=== PATIENT | female | born 1975 | race Caucasian/White ===

== ENCOUNTER 2023-08-18 10:38 | Emergency (ER) | payer BC, SELFPAY ==
[2023-08-18] VITALS (22 sets, daily range): BP systolic 131–149; BP diastolic 87–106; PULSE 93–123; RESP 10–29; TEMP 36.9; O2SAT 93–100; BMI 25.2
--- NOTE | 2023-08-18 10:52 | XR_ITS ---
The [address] [address] Patient Name: JERRI BONILLA MRN: [id number] date: 1975 Sex: F Assigned Patient Location: ER Current Patient Location: ER Accession/Order Number: [id number] Exam Date: 08/18/2023 11:00 Report Date: 08/18/2023 11:18 At the request of: CYNTHIA NICHOLAS Procedure: XR chest 1V EXAMINATION: XR chest 1V HISTORY: Palpitations COMPARISON: No relevant comparison available. FINDINGS: LUNGS: No infiltrate, pneumothorax, or pleural effusion. A few small dense nodules favoring chronic granulomas. MEDIASTINUM: No abnormal widening. BOWEL GAS PATTERN: Non-obstructed. FREE AIR: None. CALCIFICATIONS: None significant. BONES: No fracture or visible bone lesion. OTHER: Negative. XR/XR chest 1V IMPRESSION: 1. No acute cardiopulmonary process. Electronically authenticated by: STEVEN MONROE Date: 08/18/2023 11:18
--- NOTE | 2023-08-18 10:52 | ECG_ITS ---
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
--- NOTE | 2023-08-18 10:53 | ED_ITS ---
HPI - Arrhythmia/Palpitations General Chief Complaint: Arrhythmia/Palpitations Stated Complaint: HIGH HEART RATE Time Seen by Provider: 08/18/23 10:50 Source: patient Mode of arrival: walk-in Limitations: no limitations History of Present Illness HPI narrative: 47-year-old female presents for palpitations. She was sitting at her desk at work today and felt like her heart was racing and she checked it on her watch and it was fast, in the 130s to 170s. She still feels like it is fast but not as fast. No fever vomiting or diarrhea. She had a normal day thus far. She has no history of dysrhythmia. Related Data Home Medications Medication Instructions Recorded Confirmed hydrochlorothiazide 25 mg tablet mg 08/18/23 levothyroxine 100 mcg tablet mcg 08/18/23 (Synthroid) Allergies Allergy/AdvReac Type Severity Reaction Status Date / Time No Known Drug Allergies Allergy Verified 08/18/23 10:46 Review of Systems ROS Narrative A ten point review of systems is negative except as noted above. Exam Narrative Exam Narrative: Nurses note and vital signs reviewed and patient is not hypoxic. General: The patient appears well and in no apparent distress. Patient is resting comfortably on cart. Skin: Warm, dry, no pallor noted. There is no rash noted. Head: Normocephalic, atraumatic Eye: Normal conjunctiva, no drainage Ears, Nose, Mouth, and Throat: oral mucosa is moist. Nares patent. Cardiovascular: Regular Rate and Rhythm minimally tachycardic Respiratory: Patient is in no distress, no accessory muscle use, lungs are clear to auscultation, no wheezing, rales or rhonchi Back: non-tender GI: Soft and nontender Musculoskeletal: The patient has no evidence of calf tenderness, no pitting edema, symmetrical pulses noted bilaterally Neurological: A&O, normal speech Psychiatric: Cooperative Constitutional Vital Signs, click to edit/add: Last Vital Signs Temp 98.4 F 08/18/23 10:46 Pulse 98 H 08/18/23 12:50 Resp 24 08/18/23 12:50 BP 131/96 H 08/18/23 12:31 Pulse Ox 97 08/18/23 12:50 O2 Del Method Room Air 08/18/23 10:46 Course Vital Signs Vital signs: Vital Signs Temperature 98.4 F 08/18/23 10:46 Pulse Rate 123 H 08/18/23 10:46 Respiratory Rate 14 08/18/23 10:46 Blood Pressure 149/106 H 08/18/23 10:46 Pulse Oximetry 100 08/18/23 10:46 Oxygen Delivery Method Room Air 08/18/23 10:46 Temperature 98.4 F 08/18/23 10:46 Pulse Rate 98 H 08/18/23 12:50 Respiratory Rate 24 08/18/23 12:50 Blood Pressure 131/96 H 08/18/23 12:31 Pulse Oximetry 97 08/18/23 12:50 Oxygen Delivery Method Room Air 08/18/23 10:46 MDM - Arrhythmia/Palpitations MDM Narrative Medical decision making narrative: 2 sets of cardiac markers are negative and CTA chest is negative as well. She has had episodes of sinus tachycardia. Cause uncertain. She reports that she has not been under much stress. Potassium was somewhat low at 2.9 and she was given oral supplementation and is referred to cardiology for appropriate follow- up. Treatment diagnosis and follow-up were discussed with the patient and her . Differential Diagnosis Differential diagnosis: Likely palpitations, anxiety, sinus tachycardia, artial fibrillation, artial flutter and supraventricular tachycardia Lab Data Attestation: I reviewed the patient's lab results. Labs: Lab Results 08/18/23 08/18/23 Range/Units 10:53 12:45 WBC 9.4 (4.0-11.0) 10^3/uL RBC 4.45 (4.20-5.40) 10^6/uL Hgb 14.3 (12.0-16.0) g/dL Hct 41.7 (36.0-48.0) % MCV 93.7 (81.0-99.0) fL MCH 32.1 (26.7-34.0) pg MCHC 34.3 (29.9-35.2) g/dL RDW 10.9 L (11.0-15.0) % Plt Count 255 (150-450) 10^3/uL MPV 10.1 (9.5-13.5) fL Neut % (Auto) 66.4 (43.0-75.0) % Lymph % (Auto) 19.7 L (20.5-60.0) % [place] % (Auto) 9.6 (1.7-12.0) % Eos % (Auto) 3.7 (0.9-7.0) % Baso % (Auto) 0.4 (0.2-2.0) % Neut # (Auto) 6.2 (1.4-6.5) 10^3/uL Lymph # (Auto) 1.8 (1.2-3.8) 10^3/uL [place] # (Auto) 0.9 H (0.3-0.8) 10^3/uL Eos # (Auto) 0.4 (0.0-0.7) 10^3/uL Baso # (Auto) 0.0 (0.0-0.1) 10^3/uL Abs Immat Gran (auto) 0.02 (0.00-0.03) 10^3/uL Imm/Tot Granulo (auto) 0.2 (0.0-0.5) % Sodium 134 L (136-145) mmol/L Potassium 2.9 L* (3.5-5.1) mmol/L Chloride 97 L (98-107) mmol/L Carbon Dioxide 27.0 (21.0-32.0) mmol/L Anion Gap 12.9 BUN 14.0 (7.0-18.0) mg/dL Creatinine 0.64 (0.55-1.02) mg/dL Est GFR ( Amer) >60 (>=60) Est GFR (Non-Af Amer) >60 (>=60) BUN/Creatinine Ratio 21.9 Glucose 107 H (74-106) mg/dL Calcium 8.9 (8.5-10.1) mg/dL Troponin I High Sens <4.0 L 4.2 (4.0-51.3) pg/mL Imaging Data Chest x-ray: Radiologist's impression: ITS Impressions Chest X-Ray 08/18/23 10:52 IMPRESSION: 1. No acute cardiopulmonary process. Electronically authenticated by: STEVEN MONROE Date: 08/18/2023 11:18 Chest CTA 08/18/23 12:32 IMPRESSION: 1. No pulmonary embolism. 2. No acute infiltrates or suspicious findings to account for patient's symptoms. 3. Stable pulmonary nodules favoring chronic granulomatous disease. Electronically authenticated by: STEVEN MONROE Date: 08/18/2023 13:31 ECG Data Attestation: I personally reviewed and interpreted this ECG as follows: (EKG on my interpretation shows sinus tachycardia with a rate of 105.) Discharge Plan Discharge Stand Alone Forms: Portal Instructions Chief Complaint: Arrhythmia/Palpitations Clinical Impression: Sinus tachycardia Patient Disposition: Home, Self-Care Time of Disposition Decision: 13:40 Condition: Good Mode of Transportation: Private Vehicle Prescriptions / Home Meds: No Action levothyroxine [Synthroid] 100 mcg tablet hydrochlorothiazide 25 mg tablet Instructions: Tachycardia (ED) Referrals: eRta Watt MD [Physician] - 1 week DOTTY KAPLAN [Primary Care Provider] - 1 week
[2023-08-18] MEDS: 0.9 % SODIUM CHLORIDE 1,000 ML 1000 ML IV (11:02)
[2023-08-18 11:07] LABS: Basophils Percent Auto 0.4 % (0.2-2.0); Eosinophils Absolute Auto 0.4 10^3/uL (0.0-0.7); Eosinophils Percent Auto 3.7 % (0.9-7.0); Hematocrit 41.7 % (36.0-48.0); Hemoglobin 14.3 g/dL (12.0-16.0); Immature Granulocytes Abs Auto 0.02 10^3/uL (0.00-0.03); Immature Granulocytes Pct Auto 0.2 % (0.0-0.5); Lymphocytes Absolute Auto 1.8 10^3/uL (1.2-3.8); Lymphocytes Percent Auto 19.7 % (20.5-60.0); Mean Corpuscular HGB Conc 34.3 g/dL (29.9-35.2); Mean Corpuscular Hemoglobin 32.1 pg (26.7-34.0); Mean Corpuscular Volume 93.7 fL (81.0-99.0); Mean Platelet Volume 10.1 fL (9.5-13.5); Monocytes Absolute Auto 0.9 10^3/uL (0.3-0.8); Monocytes Percent Auto 9.6 % (1.7-12.0); Neutrophils Absolute Auto 6.2 10^3/uL (1.4-6.5); Neutrophils Percent Auto 66.4 % (43.0-75.0); Platelet Count 255 10^3/uL (150-450); Red Blood Count 4.45 10^6/uL (4.20-5.40); Red Cell Distribution Width 10.9 % (11.0-15.0); White Blood Count 9.4 10^3/uL (4.0-11.0)
[2023-08-18 11:17] LABS: Anion Gap 12.9; BUN Creatinine Ratio 21.9; Calcium 8.9 mg/dL (8.5-10.1); Chloride 97 mmol/L (98-107); Estimated GFR (African America >60 (>=60); Estimated GFR (Non-African Ame >60 (>=60); Glucose 107 mg/dL (74-106); Sodium 134 mmol/L (136-145)
[2023-08-18 11:23] LABS: Potassium 2.9 mmol/L (3.5-5.1); Troponin I High Sensitivity <4.0 pg/mL (4.0-51.3)
[2023-08-18] MEDS: POTASSIUM BICARBONATE/CIT 25 MEQ TABLET EFF 50 MEQ PO (11:34)
--- NOTE | 2023-08-18 12:32 | CT_ITS ---
[address] [address] Patient Name: JERRI BONILLA MRN: [id number] date: 1975 Sex: F Assigned Patient Location: ER Current Patient Location: ER Accession/Order Number: [id number] Exam Date: 08/18/2023 12:57 Report Date: 08/18/2023 13:31 At the request of: CYNTHIA NICHOLAS Procedure: CT angio chest EXAMINATION: CT angio chest HISTORY: Tachycardia, rule out PE COMPARISON: No relevant comparison available. TECHNIQUE: Multi-planar CT images were created with IV contrast. Axial, Coronal, and Sagittal images. Dose reduction techniques were achieved by using automated exposure control and/or adjustment of mA and/or kV according to patient size and/or use of iterative reconstruction technique. 3-D reconstruction was performed on a separate workstation. FINDINGS: VASCULATURE: No pulmonary embolism or abnormal opacity. LUNGS: No acute infiltrates. Stable appearance of the visible calcified and noncalcified nodules favoring chronic granulomatous disease. PLEURA: No mass, effusion, or pneumothorax. ARMAND: No mass or adenopathy. MEDIASTINUM: No mass or adenopathy. CARDIAC: No enlargement, pericardial effusion, or pericardial thickening. AORTA: No aneurysm or dissection. CHEST WALL: No mass or axillary adenopathy. BONES: No bone lesion or fracture. LIMITED ABDOMEN: No suspicious findings. Limited images of the upper abdomen. OTHER: Negative. CT/CT angio chest IMPRESSION: 1. No pulmonary embolism. 2. No acute infiltrates or suspicious findings to account for patient's symptoms. 3. Stable pulmonary nodules favoring chronic granulomatous disease. Electronically authenticated by: STEVEN MONROE Date: 08/18/2023 13:31
[2023-08-18 13:11] LABS: Troponin I High Sensitivity 4.2 pg/mL (4.0-51.3)
== END 2023-08-18 13:57 | disposition home or self-care (01) ==
PROVIDERS: Emergency Provider Emergency Medicine; PCP Nurse Practitioner
DX: R00.0 Tachycardia, unspecified (principal); Z79.899 Other long term (current) drug therapy; Z79.890 Hormone replacement therapy
CPT/HCPCS: 36415; 71045; 71275; 80048; 84484; 85025; 93005; 99285; Q9967